=== PATIENT | female | born 1965 | race Caucasian/White ===

== ENCOUNTER 2017-09-05 07:15 | Day surgery (SDC) | payer BC ==
[~2017-09-05] VITALS: Ht 157.5 cm; Wt 65.8 kg
[~2017-09-05 07:15] MED LIST: ASCORBIC ACID500 M3 PO; BIOTIN1000 MCG PO; TAMOXIFEN CITRA20 MG PO; VITAMIN B-12 51 EACH SL; VITAMIN D32000 UNI1 PO
[2017-09-05 07:45] VITALS: BP 121/58
[2017-09-05] MEDS ORDERED: MOTRIN800 MG PO (09:37)
[2017-09-05] MEDS ORDERED: PERCOCET 5/31 TABLET PO (09:37)
[2017-09-05 14:10] VITALS: BP 97/54
[2017-09-05 15:10] VITALS: BP 104/55
[2017-09-05 17:12] VITALS: BP 107/59
[2017-09-05 19:55] VITALS: BP 118/68
== END 2017-09-05 20:00 | disposition home or self-care (01) ==
LOC: SDC 07:15
DX: N87.0 Mild cervical dysplasia (principal); N72 Inflammatory disease of cervix uteri; D25.9 Leiomyoma of uterus, unspecified; N80.0 Endometriosis of uterus; N83.201 Unspecified ovarian cyst, right side; N83.202 Unspecified ovarian cyst, left side; N94.6 Dysmenorrhea, unspecified; F17.210 Nicotine dependence, cigarettes, uncomplicated; Z85.3 Personal history of malignant neoplasm of breast
CPT/HCPCS: 88307; J0690; J1100; J1170; J1885; J2001; J2250; J2405; J2710; J2765; J2795; J3010; J3475; S0020